=== PATIENT | female | born 1970 | race Hispanic/Latino ===

== ENCOUNTER → 2021-01-26 | Day surgery (SDC) | payer BC ==
[2021-01-22 09:54] LABS: ANION GAP 17.7 mmol/L (8-16); CALCIUM 9.6 mg/dL (8.4-10.2); CREATININE, SERUM 0.67 mg/dL (0.57-1.11); POTASSIUM 3.7 mmol/L (3.5-5.1)
[~2021-01-26] MED LIST: BUPIVACAINE 0.25% 30ML SDV ONE; LIPITOR10 MG PO; METFORMIN HCL500 MG PO; TRULICITY1.5 MG/0.5 SC
[2021-01-26 13:20] VITALS: BP 106/73
== END | disposition home or self-care (01) ==
LOC: OR 10:13
PROVIDERS: ATTEND Orthopaedic Surgery
DX: M65.321 Trigger finger, right index finger (principal); M65.331 Trigger finger, right middle finger; M65.322 Trigger finger, left index finger; E11.9 Type 2 diabetes mellitus without complications; Z01.810 Encounter for preprocedural cardiovascular examination; Z01.812 Encounter for preprocedural laboratory examination; Z20.822 Contact with and (suspected) exposure to COVID-19; Z79.84 Long term (current) use of oral hypoglycemic drugs
CPT/HCPCS: 26055 ×2; 36415 ×2; 80048; 82948; 93005; U0002

== ENCOUNTER 2021-02-17 14:51 | Outpatient (RCR) | payer BC ==
[~2021-02-17 14:51] MED LIST changes: -BUPIVACAINE 0.25% 30ML SDV ONE
== END 2021-02-18 ==
LOC: OT 14:51
PROVIDERS: ATTEND Orthopaedic Surgery
DX: M65.321 Trigger finger, right index finger (principal); M65.331 Trigger finger, right middle finger; M65.322 Trigger finger, left index finger

== ENCOUNTER 2021-03-16 07:53 | Outpatient (RCR) | payer BC | END 2021-03-21 | LOC: OT 07:53 | PROVIDERS: ATTEND Orthopaedic Surgery | DX: M65.321 Trigger finger, right index finger (principal); M65.331 Trigger finger, right middle finger; M65.322 Trigger finger, left index finger ==